=== PATIENT | female | born 1970 | race Caucasian/White ===

== ENCOUNTER 2025-05-27 19:11 | Emergency (ER) | payer BC, OTHER ==
[2025-05-27 19:34] VITALS: BP 155/94; PULSE 85
[2025-05-27] MEDS: Acetaminophen/HYDROcodone 325-5 MG Tab PO ONE (19:42)
== END 2025-05-27 20:41 | disposition home or self-care (01) ==
LOC: JD.ED 19:11
DX: S97.02XA Crushing injury of left ankle, initial encounter (principal); S97.82XA Crushing injury of left foot, initial encounter; Z88.2 Allergy status to sulfonamides; Z88.8 Allergy status to other drugs, medicaments and biological substances; Z79.82 Long term (current) use of aspirin; Z79.899 Other long term (current) drug therapy; W55.12XA Struck by horse, initial encounter; Y93.89 Activity, other specified
CPT/HCPCS: 73610; 73630; 99283; A9270; 99284